=== PATIENT | female | born 1985 | race Caucasian/White ===

== ENCOUNTER → 2016-09-16 | Outpatient (REF) | payer OTHER, MEDICAID | LOC: M LAB REF 13:14 | PROVIDERS: ATTEND Obstetrics & Gynecology | DX: Z34.82 Encounter for supervision of other normal pregnancy, second trimester (principal) ==

== ENCOUNTER → 2016-09-18 | Outpatient (CLI) | payer OTHER ==
--- NOTE | 2016-09-19 03:51 | REP ---
Clinical: Anatomical evaluation. Comparison: None . Findings: Examination demonstrates a single live intrauterine in cephalic presentation. motion is identified by technologist. Placenta is noted anteriorly and grade zero without evidence for placenta previa or abruption. Amniotic fluid volume is normal. Cervix measures 6.8 cm in length and appears closed. No evidence for nuchal cord. Gestational age by LMP 20 weeks 3 days with ANIRUDH 02/02/2017 . Gestational age by current measurements 19 weeks 0 days with ANIRUDH 02/12/2017 . FHR equals 144 beats per minute. BPD 4.2 cm 18 weeks 6 days HC 16.4 cm 19 weeks 1 day AC 13.8 cm 19 weeks 1 day FL 3.0 cm 19 weeks 3 days HL 3.0 cm 19 weeks 6 days HC/AC ratio 1.19 Estimated weight 282 grams ( 54th percentile). Anatomical assessment demonstrates normal structures including cranium, choroid plexus, cavum, cerebellum/posterior fossa, facial profile, lungs, four-chamber heart/ left ventricular outflow tract, diaphragm, stomach, cord insertion, kidneys/bladder, spine, and extremities. Limited evaluation of the facial features, right cardiac ventricular outflow tract, and three-vessel cord. Impression: Single live intrauterine in cephalic presentation demonstrating appropriate interval growth. Anatomical limitations as noted above. Remainder examination is normal. Signed by Jorje Culver MD 09/19/2016 03:42 A
== END ==
LOC: M SMT 12:45
PROVIDERS: ATTEND Obstetrics & Gynecology
DX: Z34.82 Encounter for supervision of other normal pregnancy, second trimester (principal)

== ENCOUNTER → 2016-11-10 | Outpatient (CLI) | payer OTHER ==
[2016-11-10 14:38] LABS: BASO % 0.3 % (0.0-1.0); EOS # 0.1 K/mm3 (0.0-0.50); EOS % 1.2 % (0.0-3.0); LARGE UNSTAINED CELL # 0.1 K/mm3 (0.0-0.4); LARGE UNSTAINED CELL % 0.9 % (0.0-4.0); LYMPH # 2.5 K/mm3 (1.5-4.5); LYMPH % 19.8 % (24.0-44.0); MEAN CORPUSCULAR HEMOGLOBIN 30.1 pg (27.0-33.0); MEAN CORPUSCULAR HGB CONC 33.2 g/dl (32.0-36.5); MEAN CORPUSCULAR VOLUME 90.6 fl (80.0-96.0); MONO # 0.4 K/mm3 (0.0-0.8); MONO % 3.6 % (0.0-5.0); NEUTROPHILS # 8.9 K/mm3 (1.8-7.7); NEUTROPHILS % 74.2 % (36.0-66.0); PLATELET COUNT, AUTOMATED 270 k/mm3 (150-450); RED CELL DISTRIBUTION WIDTH 13.7 % (11.5-14.5); WHITE BLOOD COUNT 11.9 K/mm3 (4.0-10.0)
== END ==
LOC: M SMT 10:29
PROVIDERS: ATTEND Specialist
DX: Z34.83 Encounter for supervision of other normal pregnancy, third trimester (principal)

== ENCOUNTER → 2016-11-11 | Outpatient (CLI) | payer OTHER ==
--- NOTE | 2016-11-11 11:32 | REP ---
Clinical: Anatomical evaluation. Comparison: 09/18/2016 . Findings: Examination demonstrates a single live intrauterine in breech presentation. motion is identified by technologist. Placenta is noted anteriorly and grade zero without evidence for placenta previa or abruption. Amniotic fluid volume is normal. Cervix measures 3.6 cm in length and appears closed. No evidence for nuchal cord. Gestational age by LMP 28 weeks 1 day with ANIRUDH 02/02/2017 . Gestational age by current measurements 26 weeks 2 days with ANIRUDH 02/15/2017 . FHR equals 131 beats per minute. Estimated weight 958 grams ( 38th percentile). Anatomical assessment demonstrates normal structures including cranium, choroid plexus, cavum, cerebellum/posterior fossa, facial features, lungs, ventricular outflow tracts, diaphragm, stomach, cord insertion/three-vessel cord, kidneys/bladder, and lower extremities. Impression: Single live intrauterine demonstrating appropriate interval growth when compared to first ultrasound. In conjunction with prior examination anatomical assessment is complete and normal. Signed by Jorje Culver MD 11/11/2016 11:23 A
== END ==
LOC: M SMT 09:52
PROVIDERS: ATTEND Specialist
DX: Z34.82 Encounter for supervision of other normal pregnancy, second trimester (principal); Z3A.26 26 weeks gestation of pregnancy

== ENCOUNTER → 2016-12-09 | Outpatient (CLI) | payer OTHER ==
--- NOTE | 2016-12-10 05:39 | REP ---
Clinical: Maternal hypertension for growth evaluation . Comparison: 11/11/2016 . Findings: Examination demonstrates a single live intrauterine in cephalic presentation. motion is identified by technologist. Placenta is noted anteriorly and grade one without evidence for placenta previa or abruption. Amniotic fluid volume is normal. Cervix measures 4.0 cm in length and appears closed. No evidence for nuchal cord. Gestational age by first ultrasound 30 weeks 5 days with ANIRUDH 02/12/2017 . Gestational age by current measurements 30 weeks 4 days with ANIRUDH 02/13/2017 . FHR equals 141 beats per minute. BPD 7.5 cm 30 weeks 0 days HC 28.2 cm 30 weeks 6-day AC 26.3 cm 30 weeks 3 days FL 6.1 cm 31 weeks 5 days HL 5.3 cm 30 weeks 6 days HC/AC ratio 1.07 Estimated weight 1651 grams ( 44th percentile). Amniotic fluid index equals 11.7 cm (8.8 - 23.7). Impression: Single live intrauterine in cephalic presentation demonstrating appropriate interval growth when compared to first ultrasound. No gross abnormalities are identified. Signed by Jorje Culver MD 12/10/2016 05:30 A
== END ==
LOC: M SMT 13:55
PROVIDERS: ATTEND Specialist
DX: O10.013 Pre-existing essential hypertension complicating pregnancy, third trimester (principal)

== ENCOUNTER → 2017-01-07 | Outpatient (CLI) | payer OTHER ==
--- NOTE | 2017-01-07 11:07 | REP ---
Clinical: Growth evaluation. Comparison: 12/09/2016 . Findings: Examination demonstrates a single live intrauterine in cephalic presentation. motion is identified by technologist. Placenta is noted anteriorly and grade I without evidence for placenta previa. Amniotic fluid volume is normal. Cervix measures 3.7 cm in length and appears closed. No evidence for nuchal cord. Gestational age by first US 34 weeks 6 days with ANIRUDH 02/12/2017 . Gestational age by current measurements 34 weeks 1 day with ANIRUDH 02/17/2017 . FHR equals 133 beats per minute. BPD 8.2 cm 33 weeks 0 days HC 30.9 cm 34 weeks 3 days AC 31.2 cm 35 weeks 1 day FL 6.8 cm 35 weeks 0 days HC/AC ratio 0.99 Estimated weight 2516 grams ( 46th percentile). Amniotic fluid index equals 13.9 cm (7.9 - 24.9). Umbilical cord SD ratio equals 2.86 (2.00 - 3.00). Impression: Single live advanced gestation in cephalic presentation demonstrating appropriate interval growth. Signed by Jorje Culver MD 01/07/2017 10:59 A
== END ==
LOC: M SMT 10:00
PROVIDERS: ATTEND Obstetrics & Gynecology
DX: O10.013 Pre-existing essential hypertension complicating pregnancy, third trimester (principal); Z3A.34 34 weeks gestation of pregnancy

== ENCOUNTER 2017-01-26 11:40 | Inpatient (IN) | payer OTHER ==
[2017-01-26] VITALS (10 sets, daily range): BP systolic 113–138; BP diastolic 58–86
[~2017-01-26] VITALS: Ht 167.6 cm; Wt 128.0 kg
[2017-01-26] MEDS ORDERED: LACTATED RINGER'S 1000 ML IV STA (12:21)
[2017-01-26] MEDS ORDERED: hydrOXYzine 25 MG TAB PO PRN (12:30)
[2017-01-26 12:58] LABS: MEAN CORPUSCULAR HGB CONC 34.8 g/dl (32.0-36.5); WHITE BLOOD COUNT 12.3 K/mm3 (4.0-10.0)
[2017-01-26 12:59] LABS: MEAN CORPUSCULAR HEMOGLOBIN 31.1 pg (27.0-33.0); MEAN CORPUSCULAR VOLUME 89.4 fl (80.0-96.0); RED CELL DISTRIBUTION WIDTH 13.3 % (11.5-14.5)
[2017-01-26] MEDS ORDERED: PRENTAB55 PO (13:12)
[2017-01-26] MEDS ORDERED: RANI15TA PO (13:13)
[2017-01-26] MEDS: miSOPROStol 50 MCG 1/2 TAB (S0191) PO SCH ×3 (13:27→22:11)
[2017-01-26] MEDS ORDERED: PROMETHAZINE INJ 25 MG/ML VIAL (J2550) IV ONE (13:30)
[2017-01-26] MEDS ORDERED: BUTORPHANOL 2 MG/ML INJ (J0595) IV ONE (13:30)
[2017-01-26 14:02] LABS: ALT/SGPT 30 U/L (12-78); AST/SGOT 23 U/L (15-37); BILIRUBIN,TOTAL 0.3 MG/DL (0.2-1.0); CREATININE FOR GFR 0.76 MG/DL (0.55-1.02); GLOMERULAR FILTRATION RATE > 60.0 (>60); URIC ACID 3.9 MG/DL (2.6-6.0)
--- NOTE | 2017-01-26 14:22 | HPE ---
DATE OF ADMISSION: 01/26/2017 A 31-year-old 4, para 3-0-0-3, estimated date of delivery 02/09/2017, presents at 38 weeks for induction of labor due to chronic hypertension. Denies regular contractions, loss of fluid, or bleeding. Fetus is active. Last normal menstrual period 04/28/2016 for initial expected date of delivery (ANIRUDH) of 02/02/2017, sonogram at 11 weeks changed her date to 02/09/2017. Anatomy scan within normal limits. has been complicated by obesity, chronic hypertension, tobacco use, and anxiety. Antepartum testing has been reassuring with last growth sonogram on 01/07/2017, estimated weight 2516 grams at the 46th percentile. She is allergic to IMITREX. OBSTETRICAL HISTORY: In 2007, induction of labor at 42 weeks. Hypertension. 6 pounds 6 ounce viable male. Normal spontaneous vaginal . In 2011, normal spontaneous vaginal . Induction of labor at 39 weeks for hypertension and proteinuria. Viable male 7 pounds 2 ounces. In 2014, normal spontaneous vaginal . Induction of labor at 38-39 weeks for hypertension. Viable male 7 pounds 4 ounces. MEDICAL-SURGICAL: Anxiety, posttraumatic stress disorder (PTSD). Previously was treated with Lamictal, Concerta, and Ativan that she discontinued during . FAMILY HISTORY: hypertension, thyroid disorder, asthma, and cerebral palsy. SOCIAL: Single. Father of the baby present and supportive. Reports smoking through the . Denies alcohol or drug use. OBJECTIVE: Prepregnancy weight is unknown. Weight at first trimester entry to care was 273. Total weight gain 10 pounds. A+, antibody negative, rubella immune, [facility] ([facility]), hepatitis B, hepatitis C, HIV, gonorrhea, chlamydia all negative. 1- hour glucose 107. Group B Streptococcus is positive. Baseline pre-eclamptic panel was normal with the exception of an initial 24-hour urine protein of 358.7. No apparent distress. She reports mild anxiety related to the delivery. Heart rate is regular. Respirations are easy. Vital signs are stable. She is normotensive. Abdomen is soft, gravid, longitudinal lie. Irregular contractions. heart 160, moderate variability with accelerations. Sterile vaginal examination: 2 cm, 50% effaced, -2 cephalic. ASSESSMENT: Multiparous at 38 weeks, chronic hypertension, for induction of labor, reassuring maternal status. PLAN: Admit per consult with MD. Misoprostol ripening. Considering intravenous (IV) pain medications versus epidural. Anticipate normal spontaneous vaginal . MTDD
[2017-01-26] MEDS: ACETAMINOPHEN 500 MG TAB PO PRN (15:12)
[2017-01-26] MEDS ORDERED: hydrOXYzine 50 MG TAB PO PRN (22:15)
[2017-01-27] VITALS (22 sets, daily range): BP systolic 102–140; BP diastolic 57–89
[2017-01-27] MEDS ORDERED: LR 1,000 ML IV SCH (03:56)
[2017-01-27] MEDS ORDERED: PENICILLIN G POTASSIUM IV 5 MU in D5W MINI-BAG PLUS 100 ML IV STA (03:57)
[2017-01-27] MEDS ORDERED: OXYTOCIN DRIP 30 UNITS in APPROPRIATE DILUENT 1 EA IV SCH (04:00)
[2017-01-27] MEDS ORDERED: PROMETHAZINE INJ 25 MG/ML VIAL (J2550) As Ordered ONE (04:05)
[2017-01-27] MEDS ORDERED: BUTORPHANOL 2 MG/ML INJ (J0595) As Ordered ONE (04:05)
[2017-01-27] MEDS ORDERED: BUTORPHANOL 2 MG/ML INJ (J0595) IV ONE (04:15)
[2017-01-27] MEDS ORDERED: PROMETHAZINE INJ 25 MG/ML VIAL (J2550) IV ONE (04:15)
[2017-01-27] MEDS ORDERED: FENTANYL 2MCG/ML ROPIVACAINE 0.2% IN 0.9% NACL 200ML IVBAG As Ordered ONE (05:07)
[2017-01-27] MEDS ORDERED: FENTANYL/ROPIVACAINE/NACL BAG 200 ML EPIDURAL SCH (05:11)
[2017-01-27] MEDS ORDERED: EPIDURAL/PCA KEYS XX PRN (05:11)
[2017-01-27] MEDS ORDERED: REFRIGERATOR IV KEYS XX PRN (05:11)
[2017-01-27] MEDS ORDERED: NALOXONE INJ 0.4 MG/1 ML VIAL (J2310) IV PRN (05:11)
[2017-01-27] MEDS ORDERED: LACTATED RINGER'S 1000 ML IV PRN (05:11)
[2017-01-27] MEDS ORDERED: ONDANSETRON 4MG/2ML VIAL (J2405) IV PRN (05:11)
[2017-01-27] MEDS ORDERED: ePHEDrine SULFATE 25 MG/5 ML(5MG/ML) SYRINGE IV PRN (05:11)
[2017-01-27] MEDS ORDERED: EPIDURAL COMMENT XX SCH (05:11)
[2017-01-27] MEDS ORDERED: diphenhydrAMINE INJ 50MG/ML VIAL (J1200) IV PRN (05:11)
[2017-01-27] MEDS ORDERED: MOM 30ML SUSPENSION UDC PO PRN (07:00)
[2017-01-27] MEDS ORDERED: DIBUCAINE 1% OINTMENT 30GM TOP PRN (07:00)
[2017-01-27] MEDS ORDERED: RHOGAM 300 MCG (1500 IU) INJ (J2790) IM SCH (07:00)
[2017-01-27] MEDS ORDERED: METHYLERGONOVINE MALEATE 0.2 MG TAB PO PRN (07:00)
[2017-01-27] MEDS ORDERED: DOCUSATE SODIUM 100 MG CAP PO PRN (07:00)
[2017-01-27] MEDS ORDERED: MEASLES,MUMPS,RUBELLA VACCINE INJ (MMR-II) (90707) SC SCH (07:00)
[2017-01-27] MEDS ORDERED: PENICILLIN G POTASSIUM IV 2.5 MU in D5W 100 ML IV SCH (08:00)
[2017-01-27] MEDS: PRENATAL VITAMIN TAB PO SCH (09:00)
--- NOTE | 2017-01-27 09:55 | DN ---
DATE OF DELIVERY: 01/27/2017 Utilized epidural for coping. Spontaneous rupture of membranes, clear fluid at 0618. Deep early decelerations with contractions and return to baseline, variability maintained, fully dilated of 633, viable female delivered left occipitoanterior (MICKEY) at 0636. Spontaneous respirations with stimulation. Transitioned on maternal abdomen. Cord doubly clamped and cut once pulsations ceased. scores 9 and 9. Placenta Carvajal intact with three-vessel cord at 0646. True knot noted in cord. Fundus firmed with massage and intravenous (IV) Pitocin bolus. Perineum, vagina, and cervix inspected intact. Estimated blood loss 200 mL. Sharp, sponge, and instrument count correct. Infant weight pending. MTDD
[2017-01-27] MEDS: IBUPROFEN 800 MG TAB PO PRN ×2 (10:10→18:09)
[2017-01-28] MEDS: IBUPROFEN 800 MG TAB PO PRN ×3 (03:00→18:26)
[2017-01-28 06:31] VITALS: BP 149/72
[2017-01-28] MEDS: ACETAMINOPHEN 500 MG TAB PO PRN ×2 (06:33→22:05)
[2017-01-28] MEDS: PRENATAL VITAMIN TAB PO SCH (08:05)
[2017-01-28 18:02] VITALS: BP 138/78
[2017-01-29] MEDS: IBUPROFEN 800 MG TAB PO PRN ×2 (05:36→14:32)
[2017-01-29 06:01] VITALS: BP 136/71
[2017-01-29] MEDS: PRENATAL VITAMIN TAB PO SCH (08:05)
[2017-01-29] MEDS: ACETAMINOPHEN 500 MG TAB PO PRN (08:06)
[2017-01-29] MEDS ORDERED: IBUP-1114 PO (09:15)
[2017-01-29] MEDS ORDERED: ACET50TA PO (09:15)
== END 2017-01-29 15:45 | disposition home or self-care (01) | DRG 560 ==
LOC: M LDI 11:40 → M OBS 01-27 09:48
PROVIDERS: ADMIT Advanced Practice Midwife; ATTEND Advanced Practice Midwife
PROC: 10E0XZZ Delivery of Products of Conception, External Approach (ICD-10-PCS; principal; 2017-01-27)
DX: O10.02 Pre-existing essential hypertension complicating childbirth (principal); Z68.42 Body mass index [BMI] 45.0-49.9, adult; E66.9 Obesity, unspecified; O99.344 Other mental disorders complicating childbirth; O99.214 Obesity complicating childbirth; F41.9 Anxiety disorder, unspecified; O99.334 Smoking (tobacco) complicating childbirth; F17.200 Nicotine dependence, unspecified, uncomplicated; Z88.8 Allergy status to other drugs, medicaments and biological substances; Z37.0 Single live birth; Z3A.38 38 weeks gestation of pregnancy; Z82.49 Family history of ischemic heart disease and other diseases of the circulatory system; Z82.5 Family history of asthma and other chronic lower respiratory diseases; Z82.8 Family history of other disabilities and chronic diseases leading to disablement, not elsewhere classified; Z83.49 Family history of other endocrine, nutritional and metabolic diseases; O69.2XX0 Labor and delivery complicated by other cord entanglement, with compression, not applicable or unspecified

== ENCOUNTER → 2017-04-01 | Outpatient (REF) | payer OTHER ==
[~2017-04-01] MED LIST: ACET50TA PO; ATIV1TAB7 PO; CONC18TA14 PO; IBUP-1114 PO; LAMI1TAB7 PO; PRENTAB55 PO; RANI150T PO; RANI15TA PO
== END ==
LOC: M LAB REF 17:31
PROVIDERS: ATTEND Advanced Practice Midwife
DX: Z12.4 Encounter for screening for malignant neoplasm of cervix (principal)

== ENCOUNTER → 2017-04-23 | Outpatient (REF) | payer OTHER | LOC: M LAB REF 11:56 | PROVIDERS: ATTEND Physician Assistant Medical | DX: R19.7 Diarrhea, unspecified (principal) ==

== ENCOUNTER → 2017-06-10 | Outpatient (REF) | payer MEDICAID, OTHER | LOC: M LAB REF 17:08 | PROVIDERS: ATTEND Specialist | DX: L82.0 Inflamed seborrheic keratosis (principal) ==

== ENCOUNTER → 2017-09-16 | Outpatient (CLI) | payer OTHER, MEDICAID | LOC: M RAD 14:01 | DX: M25.542 Pain in joints of left hand (principal) | CPT/HCPCS: 73130 ==

== ENCOUNTER → 2019-02-08 | Outpatient (CLI) | payer OTHER ==
[~2019-02-08] MED LIST changes: -ACET50TA PO; +MAPA500T2 PO
--- NOTE | 2019-02-08 13:06 | REP ---
Maxillofacial CT study without contrast: History: Chronic sphenoid sinusitis. Findings: Digital preliminary shake cutter radiographs are normal. The frontal sinuses are clear. There is a 8 mm mucous retention cyst in the left sphenoid sinus. Ethmoid, sphenoid, maxillary, and mastoid sinuses are otherwise clear bilaterally. There is no CT evidence of paranasal sinus mucosal disease. The ostiomeatal complexes are patent bilaterally. Bony nasal septum is in the midline. Nasal turbinate and soft tissues are unremarkable. There is no abnormality in the nasal ethmoid recesses. Sinus and orbital margins are intact. The visualized deep facial, intracranial, and intraorbital soft tissues are unremarkable. Impression: 8 mm mucous retention cyst in the left sphenoid sinus. Otherwise normal paranasal sinus maxillofacial CT study. Electronically Signed by Blayne Gramajo MD 02/08/2019 03:49 P
== END ==
LOC: M RAD 09:49
PROVIDERS: ATTEND Otolaryngology
DX: J32.3 Chronic sphenoidal sinusitis (principal)

== ENCOUNTER → 2019-07-11 | Outpatient (REF) | payer OTHER | LOC: M LAB REF 13:23 | PROVIDERS: ATTEND Internal Medicine Endocrinology, Diabetes & Metabolism | DX: E04.1 Nontoxic single thyroid nodule (principal) ==

== ENCOUNTER 2021-02-13 16:22 | Emergency (ER) | payer OTHER ==
[~2021-02-13] VITALS: Ht 167.6 cm; Wt 148.2 kg
[2021-02-13 16:24] VITALS: BP 124/88
[2021-02-13] MEDS ORDERED: SPIR50TA4 (16:47)
[2021-02-13] MEDS ORDERED: METF-838 (16:47)
[2021-02-13] MEDS ORDERED: CITA40TA4 (16:47)
[2021-02-13] MEDS ORDERED: NADO20TA (16:47)
[2021-02-13] MEDS ORDERED: LEVO88TA3 (16:47)
[2021-02-13] MEDS ORDERED: TRIA55AE2 (16:47)
[2021-02-13] MEDS ORDERED: LORA1TAB4 (16:47)
[2021-02-13] MEDS ORDERED: FERR325T3 (16:47)
== END 2021-02-13 17:00 | disposition left against medical advice (07) ==
LOC: M ED 16:22
DX: Z53.21 Procedure and treatment not carried out due to patient leaving prior to being seen by health care provider (principal)

== ENCOUNTER → 2021-06-20 | Outpatient (CLI) | payer OTHER ==
[~2021-06-20] MED LIST changes: +CITA40TA4; +FERR325T3; +LEVO88TA3; +LORA1TAB4; +METF-838; +NADO20TA; +SPIR50TA4; +TRIA55AE2
[2021-06-20 10:59] LABS: BLOOD UREA NITROGEN 13 MG/DL (7-18); CALCIUM LEVEL 9.1 MG/DL (8.5-10.1); CARBON DIOXIDE LEVEL 30 MEQ/L (21-32); CHLORIDE LEVEL 104 MEQ/L (98-107); CREATININE FOR GFR 0.74 MG/DL (0.55-1.30); FREE T4 0.93 NG/DL (0.76-1.46); GLOMERULAR FILTRATION RATE > 60.0 (>60); GLUCOSE, FASTING 94 MG/DL (70-100); POTASSIUM SERUM 4.3 MEQ/L (3.5-5.1); SODIUM LEVEL 138 MEQ/L (136-145); THYROID STIMULATING HORMONE 0.844 uIU/ML (0.358-3.740)
== END ==
LOC: M LAB 09:28
PROVIDERS: ATTEND Nurse Practitioner Family
DX: E28.2 Polycystic ovarian syndrome (principal); E06.3 Autoimmune thyroiditis

== ENCOUNTER 2021-11-27 12:09 | Emergency (ER) | payer OTHER ==
[~2021-11-27] VITALS: Ht 170.2 cm; Wt 143.2 kg
[~2021-11-27 12:09] MED LIST changes: -CITA40TA4; +CITA40TA7
[2021-11-27 13:53] VITALS: BP 117/70
== END 2021-11-27 13:54 | disposition home or self-care (01) ==
LOC: M ED 12:09
DX: S83.91XA Sprain of unspecified site of right knee, initial encounter (principal); S33.8XXA Sprain of other parts of lumbar spine and pelvis, initial encounter; W19.XXXA Unspecified fall, initial encounter; Y92.099 Unspecified place in other non-institutional residence as the place of occurrence of the external cause; Y93.51 Activity, roller skating (inline) and skateboarding; Y99.9 Unspecified external cause status; F17.200 Nicotine dependence, unspecified, uncomplicated; G47.30 Sleep apnea, unspecified; K21.9 Gastro-esophageal reflux disease without esophagitis; K58.9 Irritable bowel syndrome, unspecified; Z87.440 Personal history of urinary (tract) infections; E28.2 Polycystic ovarian syndrome; E11.9 Type 2 diabetes mellitus without complications; E03.9 Hypothyroidism, unspecified; L40.50 Arthropathic psoriasis, unspecified; F41.0 Panic disorder [episodic paroxysmal anxiety]; F42.9 Obsessive-compulsive disorder, unspecified; Z79.84 Long term (current) use of oral hypoglycemic drugs; Z79.899 Other long term (current) drug therapy; Z88.8 Allergy status to other drugs, medicaments and biological substances

== ENCOUNTER → 2022-04-24 | Outpatient (REF) | payer OTHER | LOC: M LAB REF 16:23 | PROVIDERS: ATTEND Physician Assistant Medical | DX: J02.9 Acute pharyngitis, unspecified (principal) ==

== ENCOUNTER → 2023-06-18 | Outpatient (REF) | payer OTHER ==
[~2023-06-18] MED LIST changes: +LEVO1TAB40 PO; +LORA1TAB23; -LORA1TAB4
== END ==
LOC: M SFHCPLAZ 09:54
PROVIDERS: ATTEND Nurse Practitioner Family
DX: Z53.9 Procedure and treatment not carried out, unspecified reason (principal); L40.9 Psoriasis, unspecified; R61 Generalized hyperhidrosis

== ENCOUNTER 2023-06-19 19:55 | Emergency (ER) | payer OTHER ==
[~2023-06-19] VITALS: Ht 170.2 cm; Wt 137.0 kg
[~2023-06-19 19:55] MED LIST changes: -LEVO1TAB40 PO
[2023-06-19 19:56] VITALS: TEMP 97
[2023-06-19 20:57] LABS: APPEARANCE, URINE HAZY (CLEAR); BACTERIA, URINE AUTO 1+ (NEGATIVE); BILIRUBIN, URINE AUTO NEGATIVE (NEGATIVE); BLOOD, URINE BLOOD 3+ (NEGATIVE); COLOR, URINE YELLOW (YELLOW); GLUCOSE, URINE (UA) AUTO NEGATIVE (NEGATIVE); KETONE, URINE AUTO NEGATIVE (NEGATIVE); LEUKOCYTE ESTERASE, URINE AUTO 3+ (NEGATIVE); MUCUS, URINE SMALL (NEGATIVE); NITRITE, URINE AUTO NEGATIVE (NEGATIVE); PROTEIN, URINE AUTO 1+ mg/dL (NEGATIVE); RBC, URINE AUTO 94 /HPF (0-3); SPECIFIC GRAVITY URINE AUTO 1.013 (1.002-1.035); SQUAMOUS EPITHELIAL CELL UR AU 14 /HPF (0-6); UROBILINOGEN, URINE AUTO 0.2 mg/dL (0.0-2.0); WBC, URINE AUTO 44 /HPF (0-3)
[2023-06-19 21:34] LABS: BASO # 0.1 10^3/uL (0.0-0.2); BASO % 0.6 % (0.0-1.0); EOS # 0.3 10^3/uL (0.0-0.5); HEMOGLOBIN 14.5 g/dl (12.0-15.5); LYMPH % 32.3 % (24.0-44.0); MEAN CORPUSCULAR HEMOGLOBIN 29.9 pg (27.0-33.0); MEAN CORPUSCULAR VOLUME 90.7 fl (80.0-96.0); MONO # 0.7 10^3/uL (0.0-0.8); MONO % 5.5 % (2.0-8.0); NEUTROPHILS # 7.3 10^3/uL (1.5-8.5); PLATELET COUNT, AUTOMATED 315 10^3/uL (150-450); RED BLOOD COUNT 4.85 10^6/uL (4.00-5.40); WHITE BLOOD COUNT 12.3 10^3/uL (4.0-10.0)
[2023-06-19 22:02] LABS: HCG, SERUM QUANTITATIVE 11.8 MIU/ML (<4.2)
[2023-06-19 22:04] LABS: BLOOD UREA NITROGEN 14 MG/DL (9-23); CALCIUM LEVEL 9.6 MG/DL (8.5-10.1); CARBON DIOXIDE LEVEL 25 MMOL/L (20-31); CHLORIDE LEVEL 102 MMOL/L (98-107); CREATININE FOR GFR 0.76 MG/DL (0.55-1.30); GLOMERULAR FILTRATION RATE > 60.0 (>60); GLUCOSE, FASTING 82 MG/DL (60-100); POTASSIUM SERUM 4.1 MMOL/L (3.5-5.1); SODIUM LEVEL 137 MMOL/L (136-145)
[2023-06-20] MEDS ORDERED: LEVO1TAB40 PO (02:19)
[2023-06-20 02:39] VITALS: BP 114/78; O2SAT 99
[2023-06-20] MEDS ORDERED: LevoFLOXacin 750 MG TABLET PO ONE (03:00)
== END 2023-06-20 02:41 | disposition home or self-care (01) ==
LOC: M ED 19:55
DX: N10 Acute pyelonephritis (principal); I10 Essential (primary) hypertension; G43.909 Migraine, unspecified, not intractable, without status migrainosus; E03.9 Hypothyroidism, unspecified; F41.0 Panic disorder [episodic paroxysmal anxiety]; Z88.8 Allergy status to other drugs, medicaments and biological substances

== ENCOUNTER → 2023-08-19 | Outpatient (CLI) | payer OTHER ==
[~2023-08-19] MED LIST changes: +LEVO1TAB40 PO
[2023-08-19 19:07] LABS: BASO % 0.4 % (0.0-1.0); EOS # 0.3 10^3/uL (0.0-0.5); EOS % 2.3 % (0.0-3.0); HEMATOCRIT 44.3 % (36.0-47.0); HEMOGLOBIN 14.5 g/dl (12.0-15.5); LYMPH # 3.4 10^3/uL (1.5-5.0); LYMPH % 30.6 % (24.0-44.0); MEAN CORPUSCULAR HEMOGLOBIN 29.8 pg (27.0-33.0); MEAN CORPUSCULAR HGB CONC 32.7 g/dl (32.0-36.5); MEAN CORPUSCULAR VOLUME 91.2 fl (80.0-96.0); MONO # 0.4 10^3/uL (0.0-0.8); NEUTROPHILS # 6.9 10^3/uL (1.5-8.5); NEUTROPHILS % 61.8 % (36.0-66.0); PLATELET COUNT, AUTOMATED 301 10^3/uL (150-450); RED BLOOD COUNT 4.86 10^6/uL (4.00-5.40); WHITE BLOOD COUNT 11.1 10^3/uL (4.0-10.0)
[2023-08-19 19:13] LABS: ERYTHROCYTE SEDIMENTATION RATE 56 mm/hr (0-20)
[2023-08-19 19:31] LABS: THYROID STIMULATING HORMONE 1.717 uIU/ML (0.55-4.78)
[2023-08-19 19:32] LABS: VITAMIN B12 LEVEL 443 PG/ML (211-911)
[2023-08-19 19:33] LABS: ALBUMIN 3.8 G/DL (3.2-5.2); ALKALINE PHOSPHATASE 86 U/L (46-116); ALT/SGPT 18 U/L (7.0-40); AST/SGOT 18 U/L (<34); BILIRUBIN,TOTAL 0.4 MG/DL (0.3-1.2); BLOOD UREA NITROGEN 11 MG/DL (9-23); CALCIUM LEVEL 9.1 MG/DL (8.5-10.1); CARBON DIOXIDE LEVEL 27 MMOL/L (20-31); CHLORIDE LEVEL 104 MMOL/L (98-107); CREATININE FOR GFR 0.62 MG/DL (0.55-1.30); GLOMERULAR FILTRATION RATE > 60.0 (>60); GLUCOSE, FASTING 76 MG/DL (60-100); POTASSIUM SERUM 4.1 MMOL/L (3.5-5.1); SODIUM LEVEL 139 MMOL/L (136-145); TOTAL PROTEIN 6.9 G/DL (5.7-8.2)
[2023-08-19 19:36] LABS: COMPLEMENT C3 176.8 MG/DL (84.0-160.0); COMPLEMENT C4 29.7 MG/DL (12-36)
[2023-08-19 19:37] LABS: FREE THYROXINE INDEX 2.3 % (1.3-4.8)
[2023-08-19 19:55] LABS: HIV 1&2 SCREEN NEGATIVE (NEGATIVE)
[2023-08-19 20:03] LABS: HEPATITIS C VIRUS ABY INDEX 0.06 INDEX (<0.8)
[2023-08-19 20:04] LABS: HEPATITIS B CORE ANTIBODY IGM NEGATIVE (NEGATIVE)
[2023-08-21 21:07] LABS: TESTOSTERONE FREE (DIRECT) 2.2 pg/mL (0.0-4.2)
== END ==
LOC: M LAB 16:43
PROVIDERS: ATTEND Nurse Practitioner Family
DX: L40.9 Psoriasis, unspecified (principal)

== ENCOUNTER → 2023-10-08 | Outpatient (REF) | payer OTHER | LOC: M SFHCWAGY 17:29 | PROVIDERS: ATTEND Nurse Practitioner Family | DX: Z12.4 Encounter for screening for malignant neoplasm of cervix (principal) ==

== ENCOUNTER → 2024-07-11 | Outpatient (REF) | payer OTHER | LOC: M LAB REF 16:34 | PROVIDERS: ATTEND Physician Assistant | DX: A09 Infectious gastroenteritis and colitis, unspecified (principal) ==

== ENCOUNTER → 2024-09-28 | Outpatient (REF) | payer OTHER | LOC: M LAB REF 12:22 | PROVIDERS: ATTEND Physician Assistant | DX: B34.9 Viral infection, unspecified (principal) ==

== ENCOUNTER → 2024-11-24 | Outpatient (CLI) | payer OTHER ==
[2024-11-24 15:40] LABS: ALBUMIN 3.8 G/DL (3.2-5.2); BILIRUBIN,DIRECT 0.1 MG/DL (<0.4); BILIRUBIN,TOTAL 0.4 MG/DL (0.3-1.2); FREE T4 1.04 NG/DL (0.89-1.76); THYROID STIMULATING HORMONE 1.12 uIU/ML (0.55-4.78); TOTAL PROTEIN 7.5 G/DL (5.7-8.2)
[2024-11-24 15:46] LABS: TOTAL T3 141.5 NG/DL (60.0-181.0)
== END ==
LOC: M LAB 14:40
PROVIDERS: ATTEND Otolaryngology
DX: E06.9 Thyroiditis, unspecified (principal)